=== PATIENT | male | born 1940 | race Two or more races ===

== ENCOUNTER 2022-03-22 15:00 | Emergency (ER) | payer OTHER ==
[~2022-03-22] VITALS: Ht 157.5 cm; Wt 72.6 kg
[2022-03-22 15:12] VITALS: BP 118/56
--- NOTE | 2022-03-22 15:24 | NUR ---
COVID SWAB OBTAINED AND SENT TO LAB
--- NOTE | 2022-03-22 17:30 | NUR ---
PATIENT ABLE TO AMBULATE SAFELY VIA WALKER, DR VELAZQUEZ AWARE
--- NOTE | 2022-03-22 17:44 | NUR ---
[facility] CALLED. SPOKE TO REGINO. BLS TRANSPORT ETA 1 1/2 HOUR.
== END 2022-03-22 19:19 ==
LOC: ER 15:11
DX: M25.551 Pain in right hip (principal); R41.82 Altered mental status, unspecified; W06.XXXA Fall from bed, initial encounter; Y93.89 Activity, other specified; Y92.89 Other specified places as the place of occurrence of the external cause; Y99.8 Other external cause status
CPT/HCPCS: 70450-TC; 71045-TC; 72125-TC; 73502; 73700-TC